=== PATIENT | male | born 1970 | race Caucasian/White ===

== ENCOUNTER 2024-03-30 09:05 | Outpatient (CLI) | payer BC | END 2024-03-30 09:06 | disposition home or self-care (01) | LOC: CSHULT 09:05 | PROVIDERS: ATTEND Family Medicine | DX: E05.90 Thyrotoxicosis, unspecified without thyrotoxic crisis or storm (principal); E07.9 Disorder of thyroid, unspecified | CPT/HCPCS: 76536 ==